=== PATIENT | female | born 1975 | race Caucasian/White ===

== ENCOUNTER 2021-08-26 09:57 | Emergency (ER) | payer OTHER ==
[2021-08-26] MEDS ORDERED: Bacitracin Oint 1 GM U/D Packet TOP ONE (11:12)
[2021-08-26] MEDS ORDERED: Lidocaine 1% with EPINEPHrine 1:100,000 50 ML MDV SUBCUT STA (11:12)
== END 2021-08-26 11:52 | disposition home or self-care (01) ==
LOC: JP.ED 09:57
DX: S81.811A Laceration without foreign body, right lower leg, initial encounter (principal); W23.1XXA Caught, crushed, jammed, or pinched between stationary objects, initial encounter
CPT/HCPCS: 12001; 99281; 99282